=== PATIENT | female | born 1975 | race Two or more races ===

== ENCOUNTER 2023-11-11 16:19 | Emergency (ER) | payer OTHER ==
[~2023-11-11] VITALS: Ht 175.3 cm; Wt 90.7 kg
[2023-11-11] MEDS ORDERED: KETOROLAC TROMETHAMINE 60 MG VIAL IM ONE (19:30)
[2023-11-11] MEDS ORDERED: HYDROXYCHLOROQ300 MG PO (19:54)
[2023-11-11] MEDS ORDERED: LABETALOL HCL100 MG PO (19:55)
[2023-11-11] MEDS ORDERED: DICLOFENAC SODI50 MG PO (21:35)
== END 2023-11-11 21:50 | disposition home or self-care (01) ==
LOC: ER 16:20
DX: M25.562 Pain in left knee (principal); Z88.8 Allergy status to other drugs, medicaments and biological substances; L93.2 Other local lupus erythematosus
CPT/HCPCS: 73502; 73560; 73590; 96372; 99283; J1885